=== PATIENT | male | born 1990 | race Caucasian/White ===

== ENCOUNTER 2019-08-04 22:10 | Emergency (ER) | payer SELFPAY ==
[2019-08-04] MEDS ORDERED: cefTRIAXone 1 GM, Lidocaine 1% 2.1 ML IM SCH ×2 (23:45)
--- NOTE | 2019-08-04 23:54 | EDM.PDOC ---
ED HPI GENERAL MEDICAL PROBLEM - General Chief Complaint: ENT Problem Stated Complaint: LEFT SIDE TOOTH PAIN Time Seen by Provider: 08/04/19 22:40 Source of Information: Reports: Patient History Limitations: Reports: No Limitations - History of Present Illness INITIAL COMMENTS - FREE TEXT/NARRATIVE: TRIAGE NOTE -- Pt started having tooth pain 2 days ago. Pain got worse tonight and is 10/10. Pain is to L molar and radiates down L jaw. Denies any fever or chills. [ End ] As above. Patient is actually been bothered to a certain extent for the past couple of months and has not seen a dentist but he does have access to a dentist and promises to see 1 ARMANI. Only readily identified risk factor is cigarette smoking. Patient has not taken any medication or tried any other measure to moderate symptoms. Left Tooth/Teeth Pain Score (Numeric/FACES): 8 - Related Data Allergies Allergy/AdvReac Type Severity Reaction Status Date / Time No Known Allergies Allergy Verified 08/04/19 22:25 Home Meds: Home Meds Amoxicillin/Potassium Clav [Augmentin 875-125 Tablet] 1 each PO Q12H #20 tablet 08/04/19 [Rx] Past Medical History - Infectious Disease History Infectious Disease History: Reports: Chicken Pox - Past Surgical History GI Surgical History: Reports: Hernia, Abdominal Musculoskeletal Surgical History: Reports: Shoulder Surgery Social & Family History - Family History Family Medical History: Noncontributory - Tobacco Use Smoking Status *Q: Current Every Day Smoker Years of Tobacco use: 13 Packs/Tins Daily: 0.5 - Caffeine Use Caffeine Use: Reports: Coffee, Energy Drinks, Soda, Tea - Recreational Drug Use Recreational Drug Use: No ED ROS ENT - Review of Systems Review Of Systems: Comprehensive ROS is negative, except as noted in HPI. ED EXAM, ENT - Physical Exam Exam: See Below Exam Limited By: No Limitations General Appearance: Alert, WD/WN Eye Exam: Bilateral Eye: EOMI, PERRL Ears: Normal External Exam Nose: Normal Inspection Mouth/Throat: Normal Inspection, Other (Dentition is well-maintained but tooth # 16 is tender to light percussion. It is slightly discolored also. There is no evidence of odontogenic infection. No evidence of abscess or any adjacent soft tissue process.) Head: Atraumatic, Normocephalic Neck: Normal Inspection, Supple Respiratory/Chest: No Respiratory Distress, Lungs Clear Cardiovascular: Regular Rate, Rhythm GI/Abdominal: Soft, Non-Tender Back: Normal Inspection Extremities: Normal Inspection Neurological: Alert, Oriented Psychiatric: Normal Affect, Normal Mood Skin: Warm, Dry Course - Vital Signs Last Recorded V/S: Last Vital Signs Temp 36.4 C 08/04/19 22:22 Pulse 92 08/04/19 22:22 Resp 19 08/04/19 22:22 BP 133/94 H 08/04/19 22:22 Pulse Ox 97 08/04/19 22:22 - Orders/Labs/Meds Orders: Active Orders 24 hr Category Date Time Status Ketorolac [Toradol] Med 08/04/19 23:55 Once 60 mg IM ONETIME ONE cefTRIAXone 1 GM with Lidocaine 1% 2.1 ML IM Med 08/04/19 23:45 Ordered cefTRIAXone [Rocephin] 1 gm Lidocaine 1% [Xylocaine 1%] 2.1 ml IM Q24H Medication Orders Ceftriaxone Sodium 1 gm/ (Lidocaine HCl 2.1 ml) 0 gm IM Q24H [facility] Meds: Medications Generic Name Dose Route Start Last Admin Trade Name Freq PRN Reason Stop Dose Admin Ceftriaxone Sodium 1 gm/ 0 gm 08/04/19 23:45 Lidocaine HCl 2.1 ml IM Q24H [facility] - Re-Assessments/Exams Free Text/Narrative Re-Assessment/Exam: 08/04/19 23:56 There is a painful tooth #16 upper molar on the left. Patient will be covered with an antibiotic for this. He will receive Rocephin in the ER followed by Augmentin. He promises to see a dentist within a few days. There is no evidence of dental neglect and other dentition is well maintained. Departure - Departure Time of Disposition: 23:57 Disposition: Home, Self-Care 01 Condition: Good Clinical Impression: Toothache - Discharge Information Prescriptions: Amoxicillin/Potassium Clav [Augmentin 875-125 Tablet] 1 each PO Q12H #20 tablet Referrals: PCP,Not In Area [Primary Care Provider] - Forms: ED Department Discharge Additional Instructions: You have a tooth ache involving your last molar upper left. You will see a dentist ARMANI. It is noted that you can do without this tooth and it may be reasonable to go ahead and get it pulled. You are being covered with an antibiotic which will relieve a lot of the symptoms. You are receiving Rocephin in the emergency department followed by Augmentin as an outpatient. You are also receiving a dose of Toradol in the ER which will relieve your symptoms while giving the antibiotic a chance to become effective. For any other concerns return to the ER at any time. Sepsis Event Note - Evaluation Sepsis Screening Result: No Definite Risk - Focused Exam Vital Signs: Vital Signs Temp Pulse Resp BP Pulse Ox 08/04/19 22:22 36.4 C 92 19 133/94 H 97 Date Exam was Performed: 08/04/19 Time Exam was Performed: 23:56 - My Orders Last 24 Hours: My Active Orders 08/04/19 23:45 cefTRIAXone 1 GM with Lidocaine 1% 2.1 ML IM cefTRIAXone [Rocephin] 1 gm Lidocaine 1% [Xylocaine 1%] 2.1 ml IM Q24H 08/04/19 23:55 Ketorolac [Toradol] 60 mg IM ONETIME ONE - Assessment/Plan Last 24 Hours: My Active Orders 08/04/19 23:45 cefTRIAXone 1 GM with Lidocaine 1% 2.1 ML IM cefTRIAXone [Rocephin] 1 gm Lidocaine 1% [Xylocaine 1%] 2.1 ml IM Q24H 08/04/19 23:55 Ketorolac [Toradol] 60 mg IM ONETIME ONE
[2019-08-04] MEDS ORDERED: Ketorolac 60 MG/2 ML SDV IM ONE (23:55)
== END 2019-08-05 00:22 | disposition home or self-care (01) ==
LOC: JD.ED 22:10
DX: K08.89 Other specified disorders of teeth and supporting structures (principal); K00.7 Teething syndrome; F17.210 Nicotine dependence, cigarettes, uncomplicated
CPT/HCPCS: 96372; 99282; J0696; J1885; J2001; 99283